=== PATIENT | male | born 1935 | race Caucasian/White ===

== ENCOUNTER 2016-05-13 09:31 | Outpatient (CLI) | payer OTHER, MEDICARE ==
--- NOTE | 2016-05-13 10:09 | DIAGNOSTIC IMAGING REPORT ---
PROCEDURE: XR LUMBAR SPINE 2 OR 3 VIEWS INDICATION: CHRONIC LOW BACK PAIN TECHNIQUE: Three views. COMPARISON: None. FINDINGS: Osteopenia. Mild levoscoliosis with mild spur formation and moderately severe L3-4 disc space narrowing. No fracture. 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 IMPRESSION: 1. Mild levoscoliosis with L3-4 disc space narrowing 2. 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
== END 2016-05-13 23:00 | disposition home or self-care (01) ==
LOC: XR SRH 09:31
DX: M51.36 Other intervertebral disc degeneration, lumbar region (principal); I71.4 Abdominal aortic aneurysm, without rupture